=== PATIENT | male | born 1970 | race Caucasian/White ===

== ENCOUNTER 2022-02-06 06:06 | Emergency (ER) | payer BC ==
[~2022-02-06] VITALS: Ht 190.5 cm; Wt 87.5 kg
[2022-02-06] MEDS ORDERED: FAMOTIDINE 20 MG/2 ML VIAL IVP ONE (06:30)
[2022-02-06] MEDS ORDERED: IV NORMAL SALINE 1,000ML 1,000 ML IV ONE (06:30)
[2022-02-06] MEDS ORDERED: ONDANSETRON PF 4 MG/2 ML VIAL. IVP ONE (06:30)
[2022-02-06 07:00] VITALS: BP 136/89
[2022-02-06 07:09] LABS: BASO % 0 % (0-3); EOS % 0 % (0-3); HEMATOCRIT 53.4 % (39.0-53.0); HEMOGLOBIN 17.9 g/dL (13.0-17.5); LYMPH # 0.1 x10^3/uL (1.0-4.8); LYMPH % 2 % (24-48); MEAN CORPUSCULAR HEMOGLOBIN 30 pg (25-35); MEAN CORPUSCULAR HGB CONC 34 g/dL (31-37); MEAN CORPUSCULAR VOLUME 90 fL (79-100); MONO # 0.3 x10^3/uL (0.0-1.1); MONO % 5 % (0-9); NEUT # 5.8 x10^3uL (1.8-7.7); NEUT % 92 % (31-73); PLATELET COUNT 115 x10^3/uL (140-400); RED BLOOD COUNT 5.97 x10^6/uL (4.30-5.70); RED CELL DISTRIBUTION WIDTH 13.9 % (11.5-14.5); WHITE BLOOD COUNT 6.2 x10^3/uL (4.0-11.0)
[2022-02-06 07:15] LABS: CALCIUM 8.7 mg/dL (8.5-10.1); CREATININE 1.3 mg/dL (0.7-1.3); GFR 58.2; POTASSIUM 4.7 mmol/L (3.5-5.1)
[2022-02-06 07:21] LABS: ALBUMIN 3.7 g/dL (3.4-5.0); ALBUMIN/GLOBULIN RATIO 1.3 (1.0-1.7); TOTAL BILIRUBIN 2.4 mg/dL (0.2-1.0); TOTAL PROTEIN 6.5 g/dL (6.4-8.2)
[2022-02-06 07:32] LABS: INFLUENZA A PATIENT NEGATIVE (NEGATIVE); INFLUENZA B PATIENT NEGATIVE (NEGATIVE)
[2022-02-06] MEDS ORDERED: ONDA4TAB12 PO (07:52)
[2022-02-06] MEDS ORDERED: FAMO-63 PO (07:52)
--- NOTE | 2022-02-06 07:52 | PHYS DOC ---
Past History Past Surgical History: Other Alcohol Use: Rarely General Adult EDM: Chief Complaint: MULTIPLE COMPLAINTS HPI: HPI: Patient is a 51-year-old male who presents with nausea and vomiting. Patient presents with his girlfriend who has similar symptoms. They both ate dinner last night and about a half an hour after eating the started throwing up. They have both thrown up throughout the night. He has not had any fever and does not have any abdominal pain at this time. No respiratory symptoms. Review of Systems: Review of Systems: Constitutional: Denies fever Eyes: Denies change in visual acuity or eye pain HENT: Denies sore throat Respiratory: Denies shortness of breath Cardiovascular: Denies chest pain GI: Denies abd pain : Denies dysuria Musculoskeletal: Denies back or extremity injury Integument: Denies rash or skin lesions Neurologic: Denies headache, focal weakness or sensory changes All other systems were reviewed and found to be within normal limits, except as documented in this note. Current Medications: Current Meds: Current Medications Medications (Trade) Dose Ordered Sig/Berto Start Time Stop Time Status Last Admin Dose Admin Famotidine (Pepcid Vial) 20 mg 1X ONCE 02/06/22 06:30 02/06/22 06:31 DC 02/06/22 06:44 20 MG Ondansetron HCl (Zofran) 4 mg 1X ONCE 02/06/22 06:30 02/06/22 06:31 DC 02/06/22 06:44 4 MG Sodium Chloride 1,000 ml @ 1,000 mls/hr 1X ONCE 02/06/22 06:30 02/06/22 07:29 DC 02/06/22 06:45 1,000 MLS/HR Allergies: Allergies: Allergies Coded Allergies Type Severity Reaction Last Updated Verified amoxicillin Allergy Unknown 02/06/22 Yes Physical Exam: PE: Constitutional: Well developed, well nourished, no acute distress, non-toxic appearance. HENT: Normocephalic, atraumatic, bilateral external ears normal, mucosa moist, nose normal. Eyes: EOMI, conjunctiva normal, no discharge. Neck: Normal range of motion, supple, no stridor, no meningeal signs. Cardiovascular: Regular rate and rhythm Lungs & Thorax: Bilateral breath sounds clear to auscultation Abdomen: Soft, no tenderness or obvious masses Skin: Warm, dry, no erythema, no rash. Extremities: No tenderness, no cyanosis, no clubbing, ROM intact, no edema. Neurologic: Alert and oriented, normal motor function, normal sensory function, no focal deficits noted. Psychologic: Affect normal, judgement normal, mood normal. Current Patient Data: Labs: Laboratory Tests Test 02/06/22 06:36 02/06/22 06:50 White Blood Count 6.2 x10^3/uL (4.0-11.0) Red Blood Count 5.97 x10^6/uL (4.30-5.70) H Hemoglobin 17.9 g/dL (13.0-17.5) H Hematocrit 53.4 % (39.0-53.0) H Mean Corpuscular Volume 90 fL (79-100) Mean Corpuscular Hemoglobin 30 pg (25-35) Mean Corpuscular Hemoglobin Concent 34 g/dL (31-37) Red Cell Distribution Width 13.9 % (11.5-14.5) Platelet Count 115 x10^3/uL (140-400) L Neutrophils (%) (Auto) 92 % (31-73) H Lymphocytes (%) (Auto) 2 % (24-48) L Monocytes (%) (Auto) 5 % (0-9) Eosinophils (%) (Auto) 0 % (0-3) Basophils (%) (Auto) 0 % (0-3) Neutrophils # (Auto) 5.8 x10^3uL (1.8-7.7) Lymphocytes # (Auto) 0.1 x10^3/uL (1.0-4.8) L Monocytes # (Auto) 0.3 x10^3/uL (0.0-1.1) Eosinophils # (Auto) 0.0 x10^3/uL (0.0-0.7) Basophils # (Auto) 0.0 x10^3/uL (0.0-0.2) Sodium Level 144 mmol/L (136-145) Potassium Level 4.7 mmol/L (3.5-5.1) Chloride Level 107 mmol/L (98-107) Carbon Dioxide Level 27 mmol/L (21-32) Anion Gap 10 (6-14) Blood Urea Nitrogen 23 mg/dL (8-26) Creatinine 1.3 mg/dL (0.7-1.3) Estimated GFR (Cockcroft-Gault) 58.2 BUN/Creatinine Ratio 18 (6-20) Glucose Level 135 mg/dL (70-99) H Calcium Level 8.7 mg/dL (8.5-10.1) Total Bilirubin 2.4 mg/dL (0.2-1.0) H Aspartate Amino Transferase (AST) 18 U/L (15-37) Alanine Aminotransferase (ALT) 31 U/L (16-63) Alkaline Phosphatase 47 U/L (46-116) Total Protein 6.5 g/dL (6.4-8.2) Albumin 3.7 g/dL (3.4-5.0) Albumin/Globulin Ratio 1.3 (1.0-1.7) Influenza Type A (Rapid) Negative (NEGATIVE) Influenza Type B (Rapid) Negative (NEGATIVE) Vital Signs: Vital Signs Date Time Temp Pulse Resp B/P (MAP) Pulse Ox O2 Delivery O2 Flow Rate FiO2 02/06/22 07:00 99 22 136/89 (105) 98 Room Air 02/06/22 06:17 97.7 EKG: EKG: [] Radiology/Procedures: Radiology/Procedures: [] Heart Score: C/O Chest Pain: No Risk Factors: Risk Factors: DM, Current or recent (<one month) smoker, HTN, HLP, family history of CAD, obesity. Risk Scores: Score 0 - 3: 2.5% MACE over next 6 weeks - Discharge Home Score 4 - 6: 20.3% MACE over next 6 weeks - Admit for Clinical Observation Score 7 - 10: 72.7% MACE over next 6 weeks - Early Invasive Strategies Course & Med Decision Making: Course & Med Decision Making Pertinent Labs and Imaging studies reviewed. (See chart for details) [] Is a 51-year-old male with symptoms are consistent with food poisoning. Labs are unremarkable. Patient was given a liter of normal saline, 4 of Zofran and 20 of Pepcid IV. On reassessment symptoms are improved. We will give him prescriptions for the Zofran and Pepcid and have him follow-up with his primary care physician in as needed, return to the emergency department if symptoms become worse or other concerns arise, he is stable for discharge at this time. Dragon Disclaimer: Dragon Disclaimer: This electronic medical record was generated, in whole or in part, using a voice recognition dictation system. Departure Departure: Impression: Primary Impression: Nausea and vomiting Disposition: HOME / SELF CARE / HOMELESS Condition: STABLE Referrals: VIKAS HEADLEY (PCP) Patient Instructions: Nausea and Vomiting Scripts Famotidine (PEPCID) 20 Mg Tablet 1 TAB PO BID for abd pain, #20 TAB 3 Refills Prov: GHASSAN FLOWERS MD 02/06/22 Ondansetron (ONDANSETRON ODT) 4 Mg Tab.rapdis 1 TAB PO Q6HRS for nausea, #12 TAB Prov: GHASSAN FLOWERS MD 02/06/22 GHASSAN FLOWERS MD Feb 06, 2022 07:52
== END 2022-02-06 08:10 | disposition home or self-care (01) ==
LOC: ER 06:06
DX: R11.2 Nausea with vomiting, unspecified (principal); Z88.1 Allergy status to other antibiotic agents
CPT/HCPCS: 36415; 80053; 85025; 87804; 96361; 96374; 96375; 99284; J2405; J3490; J7030; 87428